=== PATIENT | male | born 1980 | race Caucasian/White ===

== ENCOUNTER 2018-06-22 13:34 | Emergency (ER) | payer BC, OTHER ==
--- NOTE | 2018-06-22 13:54 | ED ---
GI/ HPI - HPI Summary HPI Summary: The pt is a 37 y/o male presenting to [facility] c/o hematuria and R flank pain since yesterday night. He notes bright red blood in urine, fatigue (for days) and loss of appetite but denies pain with urination,SOB, chest pain, nausea, diarrhea, fevers, and chills. He was seen at [facility] where they confirmed hematuria and referred him to the ED to r/o bacterial infection. The pt returned from [place] 1.5 weeks ago after which he was fine. The pain rated 3/ 10 in severity is aggravated by ambulating. No pertinent PMHx. Red meat allergy reported. Home Medications Medication Instructions Recorded Confirmed Type NK [No Home Medications Reported] 06/22/18 06/22/18 History - History of Current Complaint Chief Complaint: EDUrogenitalProblems Time Seen by Provider: 06/22/18 13:46 Stated Complaint: BLOOD IN URINE/BACK PAIN Hx Obtained From: Patient Onset/Duration: Started Hours Ago, Still Present Timing: Constant Severity: Mild Current Severity: Mild Vaginal Bleeding Description: Bright Red Pain Intensity: 3 Location of Pain: Flank - R Pain Radiates to: Back Associated Signs and Symptoms: Positive: Hematuria, Change in Appetite, Flank Pain. Negative: Nausea, Diarrhea, Fever, Chills, Chest Pain - Allergy/Home Medications Allergies/Adverse Reactions: Allergies Allergy/AdvReac Type Severity Reaction Status Date / Time red meat Allergy Hives Uncoded 06/22/18 13:52 Home Medications: Home Medications NK [No Home Medications Reported] 06/22/18 [History Confirmed 06/22/18] PMH/Surg Hx/FS Hx/Imm Hx Previously Healthy: Yes Endocrine/Hematology History: Denies: Hx Diabetes Cardiovascular History: Denies: Hx Hypertension, Hx Pacemaker/ICD History: Denies: Hx Renal Disease Sensory History: Denies: Hx Hearing Aid Psychiatric History: Denies: Hx Panic Disorder - Cancer History Cancer Type, Location and Year: None reported - Surgical History Surgery Procedure, Year, and Place: Tonsillectomy 1997 Infectious Disease History: No Infectious Disease History: Reports: Traveled Outside the in Last 30 Days - Went to [place] for 2017 - Family History Known Family History: Negative: Cardiac Disease, Hypertension, Diabetes - Social History Occupation: Employed Full-time Lives: With Family Review of Systems Positive: Fatigue. Negative: Fever, Chills Negative: Chest Pain Negative: Shortness Of Breath Positive: Abdominal Pain. Negative: Diarrhea, Nausea Positive: flank pain - R , hematuria. Negative: pain Musculoskeletal: Other - Positive: Back pain All Other Systems Reviewed And Are Negative: Yes Physical Exam - Summary Physical Exam Summary: Appearance: The patient is well-nourished in no acute distress and in no acute pain. Skin: The skin is warm and dry and skin color reflects adequate perfusion. HEENT: The head is normocephalic and atraumatic. The pupils are equal and reactive. The conjunctivae are clear and without drainage. Nares are patent and without drainage. Mouth reveals moist mucous membranes and the throat is without erythema and exudate. The external ears are intact. The ear canals are patent and without drainage. The tympanic membranes are intact. Neck: The neck is supple with full range of motion and non-tender. There are no carotid bruits. There is no neck vein distension. Respiratory: Chest is non-tender. Lungs are clear to auscultation and breath sounds are symmetrical and equal. Cardiovascular: Heart is regular rate and rhythm. There is no murmur or rub auscultated. There is no peripheral edema and pulses are symmetrical and equal. Abdomen: The abdomen is soft and non-tender. There are normal bowel sounds heard in all four quadrants and there is no organomegaly palpated. Musculoskeletal: There is no back tenderness noted. Extremities are non-tender with full range of motion. There is good capillary refill. There is no peripheral edema or calf tenderness elicited. Neurological: Patient is alert and oriented to person, place and time. The patient has symmetrical motor strength in all four extremities. Cranial nerves are grossly intact. Deep tendon reflexes are symmetrical and equal in all four extremities. Psychiatric: The patient has an appropriate affect and does not exhibit any anxiety or depression. Triage Information Reviewed: Yes Vital Signs On Initial Exam: Initial Vitals Temp Pulse Resp BP Pulse Ox 99.0 F 65 20 153/78 100 06/22/18 13:39 06/22/18 13:39 06/22/18 13:39 06/22/18 13:39 06/22/18 13:39 Vital Signs Reviewed: Yes Diagnostics - Vital Signs Vital Signs Temp Pulse Resp BP Pulse Ox 06/22/18 13:39 99.0 F 65 20 153/78 100 - Laboratory Result Diagrams: 06/22/18 14:23 06/22/18 14:23 Lab Statement: Any lab studies that have been ordered have been reviewed, and results considered in the medical decision making process. - CT Abd/Pel CT CT Interpretation Completed By: Radiologist Summary of CT Findings: IMPRESSION: HYPERDENSE LESION IN THE MIDPORTION OF THE RIGHT KIDNEY POSSIBLY REPRESENTING. AN AREA OF HEMORRHAGE OR LESS LIKELY A MASS OR ANEURYSM. THERE IS ALSO THICKENING OF THE. WALL OF THE RENAL PELVIS POSSIBLY SECONDARY TO AN INFECTIOUS PROCESS. RECOMMEND A INTRAVENOUS CONTRAST- ENHANCED CT OF THE ABDOMEN AND PELVIS FOR FURTHER CHARACTERIZATION. The ED physician reviewed this radiology report. Abd/Pel CT 1 CT Interpretation Completed By: Radiologist Summary of CT Findings: IMPRESSION: HYPERDENSE LESION IN THE MIDPORTION OF THE RIGHT KIDNEY POSSIBLY REPRESENTING AN AREA OF HEMORRHAGE OR LESS LIKELY A MASS OR ANEURYSM. THERE IS ALSO THICKENING OF THE WALL OF THE RENAL PELVIS POSSIBLY SECONDARY TO AN INFECTIOUS PROCESS. RECOMMEND A INTRAVENOUS CONTRAST-ENHANCED CT OF THE ABDOMEN AND PELVIS FOR FURTHER CHARACTERIZATION. The ED physician reviewed this radiology report. Abd/Pel CT 2 CT Interpretation Completed By: Radiologist Summary of CT Findings: IMPRESSION: HYPERDENSE LESION WITHIN THE RIGHT KIDNEY WITHOUT EVIDENCE FOR ENHANCEMENT SUGGESTIVE OF AN AREA OF HEMORRHAGE LESS LIKELY A HYPOVASCULAR MASS. THERE IS AN. INTRALUMINAL FILLING DEFECT WITHIN THE RENAL PELVIS LIKELY REPRESENTING CLOT ALTHOUGH NONSPECIFIC. THE POSSIBILITY OF AN UNDERLYING RENAL LESION GIVING RISE TO THE HEMORRHAGE. OR RENAL INFARCT CANNOT BE EXCLUDED. RECOMMEND UROLOGIC CONSULTATION, A FOLLOW-UP RIGHT RENAL ULTRASOUND AND FOLLOW-UP IMAGING TO DEMONSTRATE RESOLUTION OF THIS FINDING AND TO EXCLUDE AN UNDERLYING LESION. The ED physician reviewed this radiology report. GIGU Course/Dx - Course Course Of Treatment: Mr. Alize King with right flank pain and gross hematuria for about 24 hours. His exam was relatively unremarkable, his vital signs were stable and he was nontoxic in appearance. I initially thought that he likely had a stone; labs were obtained and a CT scan noncontrasted was obtained. A focal area of bleeding was identified on the CT scan and the recommendation was for a contrasted CT. Contrasted CT scan was obtained and showed a clot in the renal pelvis and was equivocal for the source of the bleeding. I spoke with Dr. Betancur who recommended urology consult. I spoke with Dr. Ordaz who was concerned for the possibility of an AVM or an aneurysm and recommended an emergent angiogram. We do not have interventional radiology here. Therefore the patient will need to be transferred. Closest facility is [facility] and Dr. Tracey accepted transfer. The pt will be transfered to the [facility] ED with a final Dx of gross hematuria. - Diagnoses Provider Diagnoses: Gross hematuria - Physician Notifications Discussed Care Of Patient With: Amol Ordaz - Urologist Instructed by Provider To: Other - Dr. Ordaz recommeded an angiogram stat. Discharge - Sign-Out/Discharge Documenting (check all that apply): Patient Departure - Transfer - Discharge Plan Condition: Stable Disposition: TRANS HIGHER LVL OF CARE FAC Referrals: [facility] [Outside] - Billing Disposition and Condition Condition: STABLE Disposition: Trans Higher Lvl of Care Fac - Attestation Statements Document Initiated by Marcellaibe: Yes Documenting Scribe: Mary Ponce Provider For Whom Volodymyr is Documenting (Include Credential): Dr. Efren Hassan MD Scribe Attestation: Mary Bruce scribed for Dr. Efren Hassan MD on 06/22/18 at 1935. Scribe Documentation Reviewed: Yes Provider Attestation: The documentation as recorded by the Mary garnett accurately reflects the service I personally performed and the decisions made by , Dr. Efren Hassan MD Status of Scribe Document: Viewed
[2018-06-22 14:14] LABS: Urine Appearance Clear; Urine Blood 3+ (Negative); Urine Ketones Negative (Negative); Urine Protein 2+(100 mg/dL) (Negative); Urine Red Blood Cell 3+(>10/hpf) (Absent); Urine Specific Gravity 1.002 (1.010-1.030); Urine Urobilinogen Negative (Negative); Urine White Blood Cell Trace(0-5/hpf) (Absent)
[2018-06-22 14:20] LABS: Urine Color Red
[2018-06-22 14:39] LABS: ABS Basophils 0.1 10^3/ul (0-0.2); ABS Eosinophils 0.2 10^3/ul (0-0.6); ABS Neutrophils 10.7 10^3/ul (1.5-7.7); ABS Nucleated RBC 0 10^3/ul; Eosinophil % 1.1 %; Hematocrit 46 % (42-52); Hemoglobin 15.7 g/dl (14.0-18.0); Lymphocyte % 14.3 %; Mean Corpuscular HGB Conc 34 g/dl (31-36); Mean Corpuscular Hemoglobin 33 pg (27-31); Mean Corpuscular Volume 96 fL (80-94); Mean Platelet Volume 8.5 fL (7.4-10.4); Nucleated Red Blood Cells % 0; Platelet Count 232 10^3/ul (150-450); Red Blood Count 4.82 10^6/ul (4.00-5.40); Red Cell Distribution Width 13 % (10.5-15); White Blood Count 13.8 10^3/ul (3.5-10.8)
[2018-06-22 15:03] LABS: EGFR Non-African American 110.4 (>60)
[2018-06-22] MEDS ORDERED: Iohexol 350* (CONTRAST) 500 ML MDV IV ONE (16:06)
[2018-06-22 20:12] VITALS: BP 129/88
== END 2018-06-22 20:11 | disposition short-term general hospital (02) ==
LOC: ED 13:34
DX: R31.0 Gross hematuria (principal); R10.84 Generalized abdominal pain; R31.9 Hematuria, unspecified; R53.83 Other fatigue
CPT/HCPCS: 36415; 74176; 74177; 80053; 81003; 81015; 85025; 86140; 87086; 99283; Q9967